=== PATIENT | male | born 1965 | race Two or more races ===

== ENCOUNTER → 2024-10-15 | Outpatient (CLI) | payer OTHER, SELFPAY ==
[2024-10-22 06:58] LABS: DHEA Sulfate* 94 mcg/dL (38-313); Testosterone, Free,Dialysis 90.4 pg/mL (35.0-155.0); Testosterone, Total, Dialysis 612 ng/dL (250-1100)
== END | disposition home or self-care (01) ==
PROVIDERS: PCP Family Medicine; Referring Provider Family Medicine; Visit Provider Family Medicine
DX: E29.1 Testicular hypofunction (principal); E34.9 Endocrine disorder, unspecified
CPT/HCPCS: 36415; 82627; 84402; 84403

== ENCOUNTER → 2025-04-07 | Outpatient (CLI) | payer OTHER, SELFPAY ==
--- NOTE | 2025-04-07 | XR_ITS ---
Examination: Lumbar spine 3 views Technique one AP lateral coned lateral lower lumbar spine 3 views Date and time: April 07, 2025 1121 hours INDICATIONS: Low back pain months. FINDINGS: Satisfactory alignment lumbar vertebral bodies Diffuse [id number] lumbar degenerative disc disease Prominent lumbar spondylosis. No acute lumbar fracture IMPRESSION: Diffuse [id number] lumbar degenerative disc disease
--- NOTE | 2025-04-07 | XR_ITS ---
Examination: Cervical spine 3 views Technique one AP lateral coned AP odontoid cervical spine 3 views Date and time: April 07, 2025 1118 hours INDICATIONS: Neck pain months. FINDINGS: Straightening normal cervical lordosis. Advanced degenerative disc disease C4-C5, C5-C6, C6-C7 Prominent cervical spondylosis No cervical fracture Intact odontoid IMPRESSION: Advanced degenerative disc disease C4-C5, C5-C6, C6-C7
== END | disposition home or self-care (01) ==
PROVIDERS: PCP Family Medicine; Referring Provider Family Medicine; Visit Provider Family Medicine
DX: M50.321 Other cervical disc degeneration at C4-C5 level (principal); M51.360 Other intervertebral disc degeneration, lumbar region with discogenic back pain only
CPT/HCPCS: 72040; 72100